=== PATIENT | female | born 1955 | race Caucasian/White ===

== ENCOUNTER 2017-10-15 10:34 | Emergency (ER) | payer OTHER ==
[2017-10-15 10:59] VITALS: BP 126/72; PULSE 70; TEMP 99; BMI 23.9
[2017-10-15] MEDS ORDERED: IBUPROFEN 600 MG TABLET (FP) PO ONE ×2 (11:53→11:55)
--- NOTE | 2017-10-15 12:00 | PDOC ---
History of Present Illness - General Chief Complaint: Injury Stated Complaint: FALL INJURY Time Seen by Provider: 10/15/17 11:38 History Source: Patient Exam Limitations: No Limitations - History of Present Illness Initial Comments: 10/15/17 11:53 While walking out parking lot last night, employee at [employer], slipped and fell landing on her left hip and left elbow. Denies head injury, but complaints of pain to left elbow and lateral left thigh. Is ambulatory, denies back pain or neck pain. Took some Motrin and use some ice last night. But came for evaluation Occurred: reports: yesterday Severity: reports: moderate Pain Location: reports: lower extremity (left hip), upper extremity (left elbow) Modifying Factors: improves with: cold therapy, pain medication Loss of Consciousness: no loss of consciousness Past History - Travel Traveled outside of the country in the last 30 days: No Close contact w/someone who was outside of country & ill: No - Past Medical History Allergies/Adverse Reactions: Allergies Allergy/AdvReac Type Severity Reaction Status Date / Time No Known Allergies Allergy Verified 10/15/17 10:56 Home Medications: Ambulatory Orders Amlodipine Besylate [Norvasc] 5 mg PO DAILY 05/24/12 Levofloxacin [Levaquin] 500 mg PO DAILY #10 tablet 05/24/12 Levothyroxine [Synthroid] 112 mcg PO DAILY 05/24/12 Metronidazole [Flagyl] 500 mg PO TID #21 tablet 05/24/12 COPD: No HTN: Yes Thyroid Disease: Yes - Surgical History Cholecystectomy: Yes - Suicide/Smoking/Psychosocial Hx Smoking Status: No Smoking History: Never smoked Number of Cigarettes Smoked Daily: 0 Review of Systems - Review of Systems Able to Perform ROS?: Yes Is the patient limited Tamazight proficient: Yes Constitutional: Yes: Symptoms Reported, See HPI, Malaise Musculoskeletal: Yes: Symptoms Reported, See HPI, Joint Pain, Joint Swelling, Muscle Pain (left hip ) Neurological: Yes: Symptoms reported *Physical Exam - Vital Signs Last Vital Signs Temp Pulse Resp BP Pulse Ox 99 F 70 19 126/72 99 10/15/17 10:56 10/15/17 10:56 10/15/17 10:56 10/15/17 10:56 10/15/17 10:56 - Physical Exam General Appearance: Yes: Nourished, Appropriately Dressed, Apparent Distress, Mild Distress HEENT: positive: MARGOTH, Normal ENT Inspection, TMs Normal, Pharynx Normal Neck: positive: Supple, Lymphadenopathy (R). negative: Tender Respiratory/Chest: positive: Lungs Clear, Normal Breath Sounds Cardiovascular: positive: Regular Rate Gastrointestinal/Abdominal: positive: Normal Bowel Sounds, Soft Musculoskeletal: positive: Decreased Range of Motion (left elbow with tenderness at medial epicondyles and some minor tenderness with supination and presentation pronation at wrist joint. Range of motion is limited to approximately 45-90 angle, past reproduces pain. Neurovascular intact to hand. No Wrist or hand tenderness.). negative: Normal Inspection (patient with large painful hematoma to initial tuberosity of left hip approximately 10 cm, has no crepitus or step-offs, and range of motion to left femur and hip joint intact. Neurovascular intact to foot.) Extremity: positive: Normal Capillary Refill, Swelling (noted to the lateral aspect of left elbow), Other. negative: Normal Inspection, Normal Range of Motion Integumentary: positive: Pale, Ecchymosis, Bruising Neurologic: positive: certified drug counselor II-XII NML intact, Fully Oriented, Alert, Normal Mood/ Affect, Normal Response ED Treatment Course - RADIOLOGY Radiology Studies Ordered: Category Date Time Status ELBOW-LEFT [RAD] Stat Radiology 10/15/17 11:53 Ordered Progress Note - Progress Note Progress Note: Status post fall with multiple contusions, left elbow x-ray reveals radial head fracture. Sling placed and will have follow-up with orthopedist *DC/Admit/Observation/Transfer Diagnosis at time of Disposition: Multiple contusions Left radial head fracture Qualifiers: Encounter type: initial encounter Fracture type: closed Fracture alignment: nondisplaced Qualified Code(s): S52.125A - Nondisplaced fracture of head of left radius, initial encounter for closed fracture - Discharge Dispostion Disposition: HOME Condition at time of disposition: Stable Admit: No - Referrals Referrals: Schuyler Monterroso MD [Primary Care Provider] - Adama Angeles MD [Staff Physician] - - Patient Instructions Printed Discharge Instructions: Easy Bruising (Alternative Therapy) Additional Instructions: Rest, ice to area on and off for 15 minutes 4-6 times a day Avoid heavy lifting or exercise until pain and swelling is resolved or until further directed Keep area highly elevated to reduce swelling Use splints/Jaspreet wrap as directed Followup with orthopedist in one to 2 days if not improving, if significantly improved may wait one week for followup with orthopedist May use ibuprofen 2-200 mg tablets every 6 hours as needed for pain - Post Discharge Activity Forms/Work/School Notes: Back to Work
== END 2017-10-15 14:02 | disposition home or self-care (01) ==
LOC: JERFT 10:34
DX: S52.125A Nondisplaced fracture of head of left radius, initial encounter for closed fracture (principal); S70.02XA Contusion of left hip, initial encounter; W01.0XXA Fall on same level from slipping, tripping and stumbling without subsequent striking against object, initial encounter; Y93.89 Activity, other specified; Y92.238 Other place in hospital as the place of occurrence of the external cause; Y99.0 Civilian activity done for income or pay
CPT/HCPCS: 73070-TC-LT; 99281-25